=== PATIENT | female | born 2000 | race Caucasian/White ===

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

== ENCOUNTER → 2022-11-30 10:26 | Outpatient (CLI) | payer OTHER, SELFPAY ==
[2022-12-01 12:07] LABS: Progesterone 16.9 ng/mL (.)
== END ==
PROVIDERS: PCP Internal Medicine Adolescent Medicine; Visit Provider Nurse Practitioner Obstetrics & Gynecology
DX: N92.6 Irregular menstruation, unspecified (principal); Z32.00 Encounter for pregnancy test, result unknown
CPT/HCPCS: 36415; 84144; 84702

== ENCOUNTER → 2022-12-10 11:15 | Outpatient (CLI) | payer OTHER, SELFPAY ==
[2022-12-10 12:33] LABS: Basophils % 0.4 % (0.1-2.0); Eosinophils # 0.3 K/mm3 (0.0-0.4); Eosinophils % 3.2 % (0.1-12.0); Hematocrit 36.8 % (37.0-47.0); Hemoglobin 12.1 g/dL (12.2-16.2); Lymphocytes # 2.2 K/mm3 (0.7-4.5); Lymphocytes % 22.3 % (10-50); Mean Corpuscular HGB Conc 32.9 g/dL (31.8-35.4); Mean Corpuscular Hemoglobin 30.7 pg (27.0-31.2); Mean Corpuscular Volume 93.3 fl (81-99); Mean Platelet Volume 8.5 fl (7.4-10.4); Monocytes # 0.4 K/mm3 (0.1-1.0); Neutrophils # 6.8 K/mm3 (1.8-7.8); Neutrophils % 70.1 % (37.0-80.0); Platelet Count 268 K/mm3 (142-424); Red Blood Count 3.95 M/mm3 (4.20-5.40); Red Cell Distribution Width 13.5 % (11.5-17.5); White Blood Count 9.8 K/mm3 (4.8-10.8)
[2022-12-11 11:05] LABS: HSV 2 IgG, Type Spec <0.91 index (0.00-0.90); Rubella Antibodies, IgG <0.90 index (Immune >0.99)
[2022-12-11 11:12] LABS: Rapid Plasma Reagin Ab Titer Non Reactive (NonRea<1:1)
[2023-01-10 21:02] LABS: HIV Screen 4th Generation wRfx NON REACTIVE
[2023-01-10 21:03] LABS: Hepatitis B Surface Antigen Negative; Hepatitis C Antibody Non Reactive
== END ==
PROVIDERS: PCP Internal Medicine Adolescent Medicine; Visit Provider Nurse Practitioner Obstetrics & Gynecology
DX: Z34.90 Encounter for supervision of normal pregnancy, unspecified, unspecified trimester (principal)
CPT/HCPCS: 36415; 85025; 86593; 86695; 86703; 86762; 86790; 86850; 87086; 87340; 87380; G0432

== ENCOUNTER → 2023-03-01 13:54 | Outpatient (CLI) | payer OTHER, SELFPAY ==
--- NOTE | 2023-03-01 14:00 | US_ITS ---
PROCEDURE: US OB /MATERNAL DETAIL CLINICAL INDICATION: 20 week anatomy scan COMPARISON: No exams were available for comparison FINDINGS: Transabdominal sonographic images of the uterus were obtained. From her established due date she is 22 weeks 1 day. Single viable intrauterine gestation. Breech position. Placenta: Posteriorplacenta grade 1. There is average amount fluid. The cervix appears satisfactory. Closed and measuring 2.7 cm in length. Complete survey performed and was unremarkable on the submitted images as in PACS. No discrete anomalies identified on survey imaging by technologist. Active fetus. Three-vessel cord with satisfactory umbilical cord insertion. 4- chamber heart noted. Situs, LVOT, RVOT, aortic arch appear normal. Survey of brain & ventricles Unremarkable. Choroid plexus, cerebellum, thalamus, cisterna magna appear normal. Face and neck survey unremarkable. Lips, nose, nasion, profile appear normal. Diaphragm and chest views unremarkable. Abdomen: Both kidneys noted and unremarkable. Stomach, bladder noted and satisfactory. Spine: Survey of the spine satisfactory with no anomalies identified nor imaged. Upper, thoracic and lower spine appear normal. Both arms and legs noted. Amniotic Fluid: Adequate. Measurements: Average ultrasound age 20weeks 5days. Estimated due date by ultrasound age 1207/14/2023. Estimated weight 380g BPD = 20weeks 3days OFD = 20weeks 6days HC = 20weeks AC = 21weeks 1day FL = 20weeks 6days Growth Percentile= 4 Heart Rate = 142bpm Cerebellum = 20weeks 4days Humerus = 20weeks 6days HC/AC is 1.09 CI is 0.77 FL/BPD is 0.72 FL/AC is 0.21 IMPRESSION: 1. Viable fetus in the breech presentation with a posterior placenta grade 1. 2. The fluid is within normal limits. 3. Anatomical scan appears normal. 4. The fetus is 4th percentile. The dates are off by 10 days. Dictated by: Hiram Chino MD 03/02/2023 09:28 Hiram Chino MD in OV 03/02/2023 09:28
== END ==
PROVIDERS: PCP Internal Medicine Adolescent Medicine; Visit Provider Nurse Practitioner Obstetrics & Gynecology
DX: Z34.92 Encounter for supervision of normal pregnancy, unspecified, second trimester (principal); Z3A.20 20 weeks gestation of pregnancy
CPT/HCPCS: 76811

== ENCOUNTER → 2023-03-26 11:18 | Outpatient (CLI) | payer OTHER, SELFPAY ==
[2023-03-26 11:42] LABS: Basophils % 0.4 % (0.1-2.0); Eosinophils # 0.2 K/mm3 (0.0-0.4); Eosinophils % 1.7 % (0.1-12.0); Hematocrit 34.7 % (37.0-47.0); Hemoglobin 11.3 g/dL (12.2-16.2); Lymphocytes % 18.2 % (10-50); Mean Corpuscular HGB Conc 32.5 g/dL (31.8-35.4); Mean Corpuscular Hemoglobin 32.4 pg (27.0-31.2); Mean Corpuscular Volume 99.6 fl (81-99); Mean Platelet Volume 8.1 fl (7.4-10.4); Monocytes # 0.4 K/mm3 (0.1-1.0); Neutrophils # 8.3 K/mm3 (1.8-7.8); Neutrophils % 75.7 % (37.0-80.0); Platelet Count 246 K/mm3 (142-424); Red Blood Count 3.48 M/mm3 (4.20-5.40); Red Cell Distribution Width 13.5 % (11.5-17.5)
[2023-03-26 11:57] LABS: Glucose,Fasting 88 mg/dl (74-100)
[2023-03-26 17:17] LABS: Glucose 1 Hour 101 mg/dL (74-100)
== END ==
PROVIDERS: PCP Internal Medicine Adolescent Medicine; Visit Provider Nurse Practitioner Obstetrics & Gynecology
DX: Z34.92 Encounter for supervision of normal pregnancy, unspecified, second trimester (principal); Z3A.25 25 weeks gestation of pregnancy
CPT/HCPCS: 36415; 82951; 85025

== ENCOUNTER → 2023-06-03 12:54 | Outpatient (CLI) | payer OTHER, SELFPAY ==
--- NOTE | 2023-06-03 13:05 | US_ITS ---
Salvage Inspector: PROCEDURE: US OB FOLLOW UP CLINICAL INDICATION: sga COMPARISON: US US OB /MATERNAL DETAIL from 03/01/2023 FINDINGS: Transabdominal sonographic images of the pelvis were obtained. The following parameters are obtained: From her established due date she is 34weeks 1day BPD: 31weeks 3days HC: 32weeks 2days AC: 34weeks FL: 32weeks 1day HC/AC: 0.98 FL/BPD: 0.79 FL/AC: 0.21 Growth percentile 16 IMPRESSION: 1. We revised her due date based on her 1st ultrasound. She is 34 weeks 1 day from the 20 week ultrasound. 2. This changes her growth to the 16th percentile. 3. Her 1st ultrasound at 10 weeks was just for viability and there were no measurements done. Dictated by: Hiram Chino MD 06/03/2023 15:32 Hiram Chino MD in OV 06/03/2023 15:32
--- NOTE | 2023-06-03 13:05 | US_ITS ---
PROCEDURE: US OB BIOPHYSICAL PROFILE CLINICAL INDICATION: sga COMPARISON: Anatomy scan March 01, 2023 FINDINGS: Transabdominal sonographic images of the uterus were obtained. From her established due date she is 35weeks 5days. The following parameters are obtained: Viable fetus in the cephalic presentation with a posterior placenta grade 2 Average ultrasound age is 32weeks 4days. Estimated due date by ultrasound is 07/25/2023. Estimated weight is 4lb 10oz. heart rate: 160bpm bpm. BPD: 31 weeks 3 days HC: 32 weeks 2 days AC: 34 weeks 0 days FL: 32 weeks 1 day HC/AC: 0.98 FL/BPD: 0.79 FL/AC: 0.21 3Percentile Amniotic fluid index: 9.72cm MVP 3.13 cm. Qualitative AFV: 2 breathing movements: 2 Gross body movements: 2 Tone: 2 Biophysical profile score: 8 Doppler evaluation of the umbilical artery: SD ratio: 2.8 Resistive index: 0.64 No obvious anomalies evident.Kidneys, profile, nasion, bladder, four-chamber heart, three-vessel cord appear normal. IMPRESSION: 1. Viable fetus in the cephalic presentation with a posterior placenta grade 2. 2. The fluid is within normal limits with an amniotic fluid index of 9.7 cm and an MVP of 3.13 cm. 3. Biophysical profile is 8 of 8 with good breathing movement seen. Baby is active. 4. She measures up 3rd centile but her 20 week ultrasound showed that she was at least 10 days behind. I suspect her dates may be off. With her revised dates the baby is normal size. Dictated by: Hiram Chino MD 06/03/2023 14:42 Hiram Chino MD in OV 06/03/2023 14:42
== END ==
PROVIDERS: PCP Internal Medicine Adolescent Medicine; Visit Provider Nurse Practitioner Obstetrics & Gynecology
DX: O36.5930 Maternal care for other known or suspected poor fetal growth, third trimester, not applicable or unspecified (principal); Z3A.35 35 weeks gestation of pregnancy
CPT/HCPCS: 76816; 76819; 76820

== ENCOUNTER → 2023-06-15 17:00 | Outpatient (CLI) | payer OTHER, SELFPAY | PROVIDERS: PCP Internal Medicine Adolescent Medicine; Visit Provider Nurse Practitioner Obstetrics & Gynecology | DX: Z34.93 Encounter for supervision of normal pregnancy, unspecified, third trimester (principal); Z3A.35 35 weeks gestation of pregnancy | CPT/HCPCS: 86403 ==

== ENCOUNTER 2023-07-03 14:35 | Outpatient (CLI) | payer OTHER, SELFPAY ==
[2023-07-03 14:50] VITALS: BMI 20.5
[2023-07-03 14:55] LABS: Microscopic, Urine URINE MICROSCOPIC (MICROSCOPIC)
[2023-07-03 14:59] LABS: Appearance,Urine CLEAR (Clear); Bilirubin,Urine Negative (Negative); Blood, Urine Negative (Negative); Color,Urine YELLOW (Yellow); Glucose,Urine (UA) Negative (Negative); Ketones,Urine Negative (Negative); Leukocyte Esterase,Urine 2+ (Negative); Nitrate,Urine Negative (Negative); Protein,Urine Negative (Negative); Urobilinogen,Urine 0.2 EU/dl (0.2)
[2023-07-03 15:12] LABS: Benzodiazepines Screen,Urine Negative ng/ml (<200)
[2023-07-03 15:13] LABS: Amphetamine/Metha Screen,Urine Negative ng/ml (<1000); Barbiturates Screen,Urine Negative ng/ml (<200)
[2023-07-03 15:14] LABS: Cannabinoid Screen,Urine Negative ng/ml (<50)
[2023-07-03 15:15] LABS: Cocaine Screen,Urine Negative ng/ml (<300); Methadone Screen,Urine Negative ng/ml (<300)
[2023-07-03 15:16] LABS: Opiate Screen,Urine Negative ng/ml (<300)
[2023-07-03 15:17] LABS: Phencyclidine Screen,Urine Negative ng/ml (<25)
[2023-07-03 15:26] LABS: Squamous Epithelial Cell,Urine Occasional #/hpf (0-5)
[2023-07-03 15:54] VITALS: BP 113/79; PULSE 85; RESP 18; TEMP 37.3; O2SAT 97; BMI 20.5
== END 2023-07-03 16:40 | disposition home or self-care (01) ==
LOC: OBOUT 14:36 → OB 14:37
PROVIDERS: PCP Internal Medicine Adolescent Medicine; Visit Provider Obstetrics & Gynecology
DX: Z34.93 Encounter for supervision of normal pregnancy, unspecified, third trimester (principal); Z3A.37 37 weeks gestation of pregnancy
CPT/HCPCS: 59025; 80305; 81001; 87086; G0463

== ENCOUNTER 2023-07-04 05:27 | Inpatient (IN) | payer OTHER, SELFPAY ==
[2023-07-04 04:04] VITALS: BP 128/82; PULSE 74; RESP 18; TEMP 36.9; O2SAT 99
[2023-07-04 04:25] VITALS: BMI 20.5
[2023-07-04 04:28] LABS: MANUAL DIFFERENTIAL MANUAL DIFFERENTIAL (MANUAL DIFF)
[2023-07-04 04:30] LABS: Basophils # 0.1 K/mm3 (0-0.2); Basophils % 0.4 % (0.1-2.0); Eosinophils # 0.2 K/mm3 (0.0-0.4); Hematocrit 36.5 % (37.0-47.0); Hemoglobin 12.7 g/dL (12.2-16.2); Lymphocytes # 2.9 K/mm3 (0.7-4.5); Lymphocytes % 16.5 % (10-50); Mean Corpuscular HGB Conc 34.9 g/dL (31.8-35.4); Mean Corpuscular Hemoglobin 33.1 pg (27.0-31.2); Mean Corpuscular Volume 94.8 fl (81-99); Mean Platelet Volume 9.6 fl (7.4-10.4); Monocytes # 0.9 K/mm3 (0.1-1.0); Neutrophils # 13.4 K/mm3 (1.8-7.8); Platelet Count 235 K/mm3 (142-424); Red Blood Count 3.85 M/mm3 (4.20-5.40); Red Cell Distribution Width 13.7 % (11.5-17.5); White Blood Count 17.4 K/mm3 (4.8-10.8)
[2023-07-04 04:52] LABS: Eosinophils % 2 % (0-3); Lymphocytes % 13 % (10-50); Macrocytosis 1+; Monocytes % 8 % (2-9); Neutrophils % 77 % (42-76); Platelet Estimate Normal; Total Cells Counted 100
[2023-07-04 05:04] VITALS: BP 128/82; PULSE 74; RESP 18; TEMP 36.9; O2SAT 99; BMI 20.5
--- NOTE | 2023-07-04 05:14 | EXP.ANES.CKL ---
[facility] Disclaimer: The information contained in this section may have been updated after the patient was seen, as this information can be updated by other users. Medical History Surgical History No history of previous surgery Family History Family/Other Hemorrhage Uncle Social History Smoking Status: Never smoker second hand exposure: No alcohol intake: never current occupational status: unemployed Travel in the last 8 weeks: None household members: family housing: house [facility] Anesthesia Checklist Patient Identification Patient Identification: Arm Band, Family and Verbal (Name & ) Structural Data Admitted From: Inpatient Planned Operative Procedure/s: Labor epidural Consent for Planned Operative Procedure(s) Verified: Yes Verified Documents: Surgical Consent and History and Physical NPO Status Verified Time NPO: 00:00 Chart Verification Results Verified: CBC Additional verifications Patient : Yes (39 week IUP in labor) Anesthesia Reactions: No Cardiovascular Assessment Heart Sounds: S1 & S2 Pulse Rhythm: Irregular Peripheral Edema: Yes (2+ WINSTON LE) Airway Assessment Mallampati Score:: Class II C-Spine Mobility Assessed: Yes TMJ Mobility Assessed: Yes Dentition: Poor Dentition (Nothing loose per pt.) Neurological Assessment Level of Consciousness: Awake, Alert, Appropriate and Follows Commands Hx Seizures: No Numbness or tingling in extremities: No Anesthesia Plan Anesthesia Risk discussed: Yes Anesthesia Plan: Verified ASA Class: II Anesthesia Type: Spinal (PSR- Pt . dilated at 9cm.)
--- NOTE | 2023-07-04 05:45 | EXP.HP ---
History of Present Illness *Admission Date: 07/04/23 *Reason for visit:: labor *History of present illness: Karis Brown is a 23yo who presents with regular painful contractions. Presents at 38weeks and 4days gestation, dated by 20week anatomy scan. She previously presented last night and was observed for a labor rule out and was not making any contractions. Her has been uncomplicated. On presentation patient endorsed good movement and denies any leakage of fluid or vaginal bleeding. O+, antibody negative, rubella non-immune, hepatitis B negative, hepatitis C negative, RPR negative, HIV negative, HSV1 positive, HSV2 negative 1 hour GTT: 101 GBS negative PFSH PFSH Disclaimer: The information contained in this section may have been updated after the patient was seen, as this information can be updated by other users. Medical History Surgical History No history of previous surgery Family History Family/Other Hemorrhage Social History Smoking Status: Never smoker second hand exposure: No alcohol intake: never current occupational status: unemployed Travel in the last 8 weeks: None household members: family housing: house Review of Systems Review of Systems Review of systems (narrative): Review of Systems - difficult to obtain secondary to patient being in significant pain Respiratory: Denies cough and shortness of breath Cardiovascular: Denies chest pain and lightheadedness Gastrointestinal: Admits abdominal pain with contractions. endorses nausea and vomiting from contractions. Genitourinary: Denies dysuria and incontinence Neurological: Denies headaches Meds Home Medications and Allergies Home Medications Medication Instructions Recorded Confirmed Type ferrous sulfate 325 mg (65 mg 325 mg PO DAILY #30 tabs 02/16/23 07/01/23 Rx iron) tablet,delayed release vit no.95-ferrous 1 tab PO DAILY 06/03/23 07/01/23 History fumarate 28 mg-folic acid 800 mcg tablet () New Prescriptions to Start Prescriptions: Allergies Allergy/AdvReac Type Severity Reaction Status Date / Time No Known Allergies Allergy Verified 07/01/23 15:00 Exam Data for Last 24 hours Vital signs and Labs for Last 24 Hours: Temp Pulse Resp BP Pulse Ox O2 Del Method 98.5 F 74 18 128/82 99 Room Air 07/04/23 05:04 07/04/23 05:04 07/04/23 05:04 07/04/23 05:04 07/04/23 05:04 07/04/23 05:04 Laboratory Results - last 24 hr 07/04/23 04:10: WBC 17.4 H, RBC 3.85 L, Hgb 12.7, Hct 36.5 L, MCV 94.8, MCH 33.1 H, MCHC 34.9, RDW 13.7, Plt Count 235, MPV 9.6, Neut % (Auto) 77.0, Lymph % (Auto) 16.5, [place] % (Auto) 5.0, Eos % (Auto) 1.0, Baso % (Auto) 0.4, Neut # (Auto) 13.4 H, Lymph # (Auto) 2.9, [place] # (Auto) 0.9, Eos # (Auto) 0.2, Baso # (Auto) 0.1, Total Counted 100, Neutrophils % (Manual) 77 H, Lymphocytes % (Manual) 13, Monocytes % (Manual) 8, Eosinophils % (Manual) 2, Platelet Estimate Normal, Macrocytosis 1+, Blood Type O Positive, Antibody Screen Negative I & O for Last 24 hours: Intake & Output 07/01/23 07/02/23 07/03/23 07/04/23 23:59 23:59 23:59 23:59 Weight 120 lb Narrative: General: patient is alert oriented in mild distress with contractions. Only responding with yes/no answers secondary to pain. HEENT: NCAT, EOMI, moist mucous membranes, neck supple with full ROM Cardiovascular: RRR Pulmonary: Clear to auscultation bilaterally, labored breathing with contractions, symmetric chest rise Abdominal: Gravid abdomen appropriate for gestation. No guarding, rebound, or tenderness noted. strong palpable contractions SVE: 7/100/0 Extremities: no edema, no tenderness or cyanosis noted Skin: Normal turgor, intact, warm. Negative for vale
--- NOTE | 2023-07-04 07:05 | EXP.DN ---
Delivery Note Delivery Date:: 07/04/23 Delivery Time:: 06:42 Anesthesia Type: Spinal (PSR- Pt . dilated at 9cm.) Was labor medically induced?: No Induction method: none Gestational age (weeks): 38 Infant delivered prior to 39 weeks?: Yes Infant Gender: Female at 1 minute: 7 at 5 minutes: 8 Delivery Procedure:: Preoperative diagnosis: 1. at 38 completed this weeks gestation, vertex 2. Rh positive 3. GBS negative 4. Active labor Postoperative diagnosis: 1. at 38 completed this weeks gestation, vertex 2. Rh positive 3. GBS negative 4. Active labor EBL: 100mL Specimen: 1. Cord blood 2. Venous blood gas Findings: 1. Liveborn viable female : Nilo. Apgars 7/8 at 1 and 5 minutes respectively. Weight pending at time of dictation 2. Bilateral labial abrasions Complications: None Karis Brown is a 23-year-old G1 who presented to labor and delivery with regular painful contractions and was noted to be in active labor. care was with Dr. Chino and was uncomplicated. Shortly after arrival anesthesia was paged and secondary to suspecting that patient was delivered quickly we elected to proceed with spinal anesthesia. She progressed to complete shortly after spinal was placed. During pushing the patient had variable decelerations with contractions. They recovered to baseline with good variability in between contractions. The infant was noted to be in RISHABH position. With effective maternal pushing there was a nonoperative spontaneous vaginal delivery at 0642. No nuchal cord. The anterior left shoulder delivered, followed by the posterior shoulder without dystocia. The body and lower extremities delivered without difficulty. The infant was bulb suctioned and was crying immediately following delivery. The infant was placed on the maternal abdomen and greater than one minute was appreciated for delayed cord clamping. The umbilical cord was doubly clamped and cut. Cord blood was collected and sent for routine testing. The placenta delivered with cord traction and suprapubic contertraction. Pitocin was started and the placenta and cord were inspected. The placenta was noted to be intact, with a 3 vessel cord. The uterus was firm and bleeding was minimal. The perineum, vaginal bray, cervix, and paraurethral area were inspected thoroughly and noted to be free of laceration. There were bilateral labial abrasions. These were mostly hemostatic but they were repaired for cosmetic purposes. The cervix and vaginal bray were inspected and noted to be hemostatic. The cervix was prolapsed past the introitus suspicion for uterine perforation or cervical laceration. This concluded the delivery. The patient was counseled regarding the events of the delivery and repair. The patient tolerated the delivery well. All counts were correct by nursing. Mother and infant were bonding and doing well upon my leaving the delivery room. Placental Delivery Description: Spontaneous
[2023-07-04 08:25] VITALS: BP 134/71; PULSE 65; RESP 18; TEMP 37.3; O2SAT 98
[2023-07-04 16:41] VITALS: BP 120/75; PULSE 57; RESP 17; TEMP 36.8; O2SAT 97
[2023-07-04 20:30] VITALS: BP 114/77; PULSE 75; RESP 18; TEMP 36.6; O2SAT 99
[2023-07-05 04:00] VITALS: BP 113/73; PULSE 56; RESP 18; TEMP 36.6; O2SAT 100
[2023-07-05 07:29] LABS: Basophils # 0.1 K/mm3 (0-0.2); Basophils % 0.4 % (0.1-2.0); Eosinophils # 0.1 K/mm3 (0.0-0.4); Hematocrit 35.2 % (37.0-47.0); Hemoglobin 11.7 g/dL (12.2-16.2); Lymphocytes # 2.4 K/mm3 (0.7-4.5); Lymphocytes % 17.1 % (10-50); Mean Corpuscular HGB Conc 33.2 g/dL (31.8-35.4); Mean Corpuscular Hemoglobin 32.9 pg (27.0-31.2); Mean Corpuscular Volume 99.1 fl (81-99); Mean Platelet Volume 9.8 fl (7.4-10.4); Monocytes # 0.7 K/mm3 (0.1-1.0); Monocytes % 4.7 % (1.7-9.3); Neutrophils % 76.9 % (37.0-80.0); Platelet Count 198 K/mm3 (142-424); Red Blood Count 3.55 M/mm3 (4.20-5.40); Red Cell Distribution Width 13.9 % (11.5-17.5); White Blood Count 14.3 K/mm3 (4.8-10.8)
--- NOTE | 2023-07-05 10:10 | EXP.ACUTE.PN ---
Subjective *Date: 07/05/23 *Time: 10:10 Interval history: PPD # 1 s/p Resting comfortably in bed. Pain controlled. Lochia is appropriate. Formula feeding. Voiding without difficulty and passing flatus. Tolerating regular diet. Denies fever/chills, chest pain and shortness of breath. Denies headaches, vision changes, lightheadedness/dizziness. Ambulating well ad josafat. Medical Exam Vital signs and Labs for Last 24 Hours: Vital Signs Temp Pulse Resp BP Pulse Ox O2 Del Method 07/05/23 04:00 98 F 56 L 18 113/73 100 Room Air 07/04/23 20:30 98 F 75 18 114/77 99 Room Air 07/04/23 16:41 98.3 F 57 L 17 120/75 97 Room Air Laboratory Results - last 24 hr 07/05/23 07:10: WBC 14.3 H, RBC 3.55 L, Hgb 11.7 L, Hct 35.2 L, MCV 99.1 H, MCH 32.9 H, MCHC 33.2, RDW 13.9, Plt Count 198, MPV 9.8, Neut % (Auto) 76.9, Lymph % (Auto) 17.1, Leslie % (Auto) 4.7, Eos % (Auto) 1.0, Baso % (Auto) 0.4, Neut # (Auto) 11.0 H, Lymph # (Auto) 2.4, Leslie # (Auto) 0.7, Eos # (Auto) 0.1, Baso # (Auto) 0.1 I & O for Labs for Last 24 Hours: Intake & Output 07/02/23 07/03/23 07/04/23 07/05/23 23:59 23:59 23:59 23:59 Weight 120 lb Head: Present atraumatic and normocephalic Neck: Present normal inspection and full ROM Respiratory: Present CTA bilaterally and normal respiratory effort Cardiac: Present Reg Rate and Rhythm GI: Present soft; Absent distention, tenderness or guarding Comments:: Uterine fundus firm and below umbilicus Rectal (female): Present deferred (female): Present deferred Extremities: Present full ROM; Absent edema or calf tenderness Neuro: Present alert, awake, oriented x 3 and moves all extremities Assessment and Plan *Assessment and plan (1) 38 weeks gestation of : Status: Acute Category: Medical Code(s): Z3A.38 - 38 weeks gestation of (2) Status post normal vaginal delivery: Status: Acute Category: Medical (3) Active labor at term: Status: Acute Category: Medical (4) Rubella non-immune status, antepartum: Status: Acute Category: Medical Code(s): O09.899 - Supervision of other high risk pregnancies, unspecified trimester; Z28.39 - Other underimmunization status Plan Continue routine care Encouraged increased ambulation MMR before discharge Patient needs assistance and education with baby care and outside resources. student services vice president consulted to help Plan d/c home PPD # 2 or PPD #3
[2023-07-05 17:11] VITALS: BP 117/75; PULSE 68; RESP 16; TEMP 36.9; O2SAT 100
--- NOTE | 2023-07-06 08:51 | EXP.DC.SUM ---
General Admission date:: 07/04/23 Discharge date: 07/06/23 HPI HPI HPI: Karis Brown is a 23yo who presents with regular painful contractions. Presents at 38weeks and 4days gestation, dated by 20week anatomy scan. She previously presented last night and was observed for a labor rule out and was not making any contractions. Her has been uncomplicated. On presentation patient endorsed good movement and denies any leakage of fluid or vaginal bleeding. O+, antibody negative, rubella non-immune, hepatitis B negative, hepatitis C negative, RPR negative, HIV negative, HSV1 positive, HSV2 negative 1 hour GTT: 101 GBS negative Hospital Course Hospital Course Hospital Course: Karis is a 23yo PPD#2 from a . She is doing well. Reports her lochia is scant her pain is well-controlled. She is ambulating, voiding, tolerating p.o. without difficulty or dysuria. Denies any nausea or vomiting. She is bottlefeeding her female infant. Undecided on contraception. Patient desires discharge home today. Routine discharge instructions reviewed with patient in detail and she voiced understanding. She will follow-up in 2 weeks for a visit. I discussed reasons to return to care and reviewed blues with her and her significant other in length. Exam Data for Last 24 hours Vital signs and Labs for Last 24 Hours: Temp Pulse Resp BP Pulse Ox O2 Del Method 98.5 F 68 16 117/75 100 Room Air 07/05/23 17:11 07/05/23 17:11 07/05/23 17:11 07/05/23 17:11 07/05/23 17:11 07/05/23 17:11 I & O for Last 24 hours: Intake & Output 07/03/23 07/04/23 07/05/23 07/06/23 23:59 23:59 23:59 23:59 Output Total 0 / 0 Balance 0 / 0 Weight 120 lb Narrative: General: patient is alert oriented in no acute distress and responds appropriately to questions. Appears to be in minimal pain. HEENT: NCAT, EOMI, moist mucous membranes, neck supple with full ROM Cardiovascular: RRR +S1/S2, no murmurs or rubs Pulmonary: Clear to auscultation bilaterally, nonlabored breathing, symmetric chest rise Abdominal: Fundus below the umbilicus, firm, and tenderness appropriate for the period. Extremities: no edema, no tenderness or cyanosis noted Skin: Normal turgor, intact, warm. Negative for erythema, pallor, petechia, or lesions Neurologic: Negative for sensory or motor deficit Psychiatric: Normal affect, normal thought process, good judgment and insight, no depression or anxious mood appreciated. DS: Diagnosis Discharge Diagnosis (1) 38 weeks gestation of : Status: Acute Code(s): Z3A.38 - 38 weeks gestation of (2) Status post normal vaginal delivery: Status: Acute Problem details: PPD#2 from an -Doing well. VSS. Serial lochia and fundal checks. -Patient needs assistance and education with baby care and outside resources. account services specialist consulted to help -O+/antibody negative -Bottle feeding, female infant: Nilo -Hemoglobin: 12.7 --> 11.7 -Contraception: undecided. Discuss at visit -Follow-up 2 weeks for routine visit #Rubella Non immune -Storage Architect and vaccinate if pt desires. -Dispo: home today pending mother/infant status (3) Active labor at term: Status: Acute (4) Rubella non-immune status, antepartum: Status: Acute Code(s): O09.899 - Supervision of other high risk pregnancies, unspecified trimester; Z28.39 - Other underimmunization status Meds Home Medications and Allergies Home Medications Medication Instructions Recorded Confirmed Type acetaminophen 500 mg tablet 500 mg PO Q6H PRN fever #30 tabs 07/06/23 Rx ferrous sulfate 325 mg (65 mg 325 mg PO DAILY IRON SUPPLEMENT 07/06/23 Rx iron) tablet,delayed release #30 tabs ibuprofen 800 mg tablet 800 mg PO Q8H PRN pain #60 tabs 07/06/23 Rx vit no.95-ferrous 1 tab PO DAILY MULTIVITAMIN #90 07/06/23
--- NOTE | 2023-07-06 10:07 | SW/DCPLANNER ---
Addendum entered by Karis Baron 07/06/23 13:14: Era bella/ RAJEEV stated that she will evaluate patient at home tomorrow 07/07/23 at 9AM: patient is agreeable. Original Note: I received a consult on this patient regarding:lack of supplies, knowledge deficit, hard to get food for themselves. Patient has been provided an [facility] Resource list. I will follow up w/ Ruth or Era BOO to start services for this patient. female (Karen Villalpando) was born 07/04/2022. Infant's father (Angelo Villalpando 08/05/2003) was present at the time of my visit. Patient, Angelo and infant will reside at [address] [place] [address]. Patient/Angelo contact information is [phone]. Patient is currently established w/ [facility] and interested in [facility]. Patient stated that she has the following items at home: crib, carseat, clothing, diapers and will be bottle feeding. Patient stated that PED MD will be Dr Lozano. Patient also stated that she will have transportation to all follow up appointments. Dr Cruz stated that patient and 's father will be completing a mock trial prior to discharge later this afternoon. Dr Cruz also highly recommends the HANDS program for this patient and . I will follow up w/ HANDS program, patient and MD. Patient could potentially discharge later today.
== END 2023-07-06 17:00 | disposition home or self-care (01) | DRG 807 ==
LOC: OBOUT 05:28 → OB 05:28
PROVIDERS: Admitting Provider Obstetrics & Gynecology; PCP Nurse Practitioner Obstetrics & Gynecology; Visit Provider Obstetrics & Gynecology
DX: O80 Encounter for full-term uncomplicated delivery (principal); Z37.0 Single live birth; Z3A.38 38 weeks gestation of pregnancy
CPT/HCPCS: 59409; 36415; 59025; 80305; 81001; 85007; 85014; 85018; 85025; 85048; 85049; 86850; 87086; 90707; G0463; J2405

== ENCOUNTER 2024-08-12 19:37 | Emergency (ER) | payer OTHER, SELFPAY ==
[2024-08-12 19:39] VITALS: BP 122/88; PULSE 58; RESP 16; TEMP 36.6; O2SAT 100; BMI 14.6
--- NOTE | 2024-08-12 19:57 | XR_ITS ---
PROCEDURE INFORMATION: Exam: XR Cervical Spine Exam date and time: 08/12/2024 8:50 PM Age: 24 years old Clinical indication: Injury or trauma; Fall; Blunt trauma TECHNIQUE: Imaging protocol: Radiologic exam of the cervical spine. Views: 2 or 3 views. COMPARISON: No relevant prior studies available. FINDINGS: Bones/joints: Normal. No acute fracture. Normal alignment. Soft tissues: Unremarkable. IMPRESSION: No acute findings.
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
[2024-08-12 20:26] LABS: Chloride 105 mmol/L (98-107); Potassium 4.1 mmoL/L (3.5-5.1); Sodium 136 mmol/L (136-145)
[2024-08-12 20:29] LABS: Anion Gap 9.1 mEq/L (5-15); Blood Urea Nitrogen 13 mg/dl (7-17); Calcium 8.5 mg/dl (8.4-10.2); Carbon Dioxide 26 mmol/L (22.0-30.0); Creatinine Clearance Estimated 67 mL/min (50-200); Estimated Glomerular Filt Rate 89 ml/min (>60); GFR (African American) 108 ML/MIN (>60); Glucose 88 mg/dl (74-100)
[2024-08-12 20:50] LABS: HCG Qualitative, Serum Negative (Negative)
[2024-08-12] MEDS: SODIUM CHLORIDE 0.9% 10ML SYR (RAD ONLY) 10 ML IV (21:08)
[2024-08-12] MEDS: 0.9 % SODIUM CHLORIDE 50 ML VIAL IV (21:08)
[2024-08-12] MEDS: IOPAMIDOL-370 (76%);100ML BOTTLE 80 ML IV (21:08)
--- NOTE | 2024-08-12 21:13 | PC.NURSE ---
PT back to room from rad by WC at this time
[2024-08-12 21:30] VITALS: BP 118/90; PULSE 65; O2SAT 100
[2024-08-12 22:00] VITALS: BP 120/82; PULSE 54; O2SAT 100
[2024-08-12 22:30] VITALS: BP 122/82; PULSE 57; O2SAT 100
--- NOTE | 2024-08-12 22:44 | PC.NURSE ---
MD at bedside at this time
[2024-08-12 22:55] VITALS: BP 122/82; PULSE 55; RESP 16; TEMP 36.6; O2SAT 98
== END 2024-08-12 23:00 | disposition home or self-care (01) ==
PROVIDERS: Nurse Practitioner Family; Emergency Provider Student in an Organized Health Care Education/Training Program; PCP Internal Medicine Adolescent Medicine
DX: M54.2 Cervicalgia (principal); R68.84 Jaw pain; W18.2XXA Fall in (into) shower or empty bathtub, initial encounter; Y93.89 Activity, other specified; Y92.002 Bathroom of unspecified non-institutional (private) residence as the place of occurrence of the external cause
CPT/HCPCS: 70498; 72040; 80048; 84703; 99285; Q9967